=== PATIENT | female | born 1975 | race Caucasian/White ===

== ENCOUNTER 2017-01-15 10:15 | Day surgery (SDC) | payer BC ==
[~2017-01-15] VITALS: Ht 157.5 cm; Wt 74.8 kg
--- NOTE | ~2017-01-15 | EGD ---
EGD REPORT [facility] [address] [id number] NAME: JEROME COOLEY : [birth year] [place] [facility] [place] [id number] AGE: 41 ADM/REG DATE : 01/15/17 MR#: [id number] REPORT SERV DATE: 01/15/17 DICTATED BY: NATASHA HICKS DATE: 01/15/17 REPORT STATUS : Draft TRANSCRIBED BY: [employer] [facility] DATE: 01/15/17 [facility] Patient Name: Jerome Cooley Date of : 1975 Attending MD: NATASHA HICKS, Procedure Date No Time: 01/15/2017 Procedure: Upper EUS Indications: Abnormal ultrasound of the abdomen. Dilated bile duct and abnormal transaminases. Referring MD: VANESSA RUVALCABA III, KARIS ESTRADA MD, AUSTIN CANTRELL Medicines: Monitored Anesthesia Care Complications: No immediate complications. Estimated blood loss: None. Procedure: Pre-Anesthesia Assessment: - ASA Grade Assessment: III - A patient with severe systemic disease. After obtaining informed consent, the endoscope was passed under direct vision. Throughout the procedure, the patient's blood pressure, pulse, and oxygen saturations were monitored continuously. The Endoscope was introduced through the mouth, and advanced to the second part of duodenum. The upper EUS was accomplished without difficulty. The patient tolerated the procedure well. Findings: Endoscopic Finding : The area of the papilla was normal. Endosonographic Finding : There was dilation in the common bile duct which measured up to 7 mm. Endosonographic imaging of the visualized portion of the biliary system showed no stones, no sludge and no stricture. There was no sign of significant endosonographic abnormality in the entire pancreas. The pancreas was well visualized, no pathologic lymphadenopathy, no masses, no calcifications, the pancreatic duct was well visualized from ampulla to tail, the pancreatic duct was regular in contour. The pancreatic duct had a normal endosonographic appearance in the entire pancreas. The pancreatic duct measured up to 2.7 mm in diameter. No lymphadenopathy seen. There was no sign of significant endosonographic abnormality in the ampulla. Endosonographic images of the stomach were unremarkable. There was no sign of significant endosonographic abnormality in the esophagus. EGD REPORT [address] [address] NAME: JEROME COOLEY : [birth year] [place] [facility] [place]#: [id number] AGE: 41 ADM/REG DATE : 01/15/17 MR#: [id number] REPORT SERV DATE: 01/15/17 DICTATED BY: NATASHA HICKS DATE: 01/15/17 REPORT STATUS : Draft TRANSCRIBED BY: [employer] [facility] DATE: 01/15/17 Impression: - Normal area of the papilla. - There was dilation in the common bile duct which measured up to 7 mm. - There was no sign of significant pathology in the entire pancreas. - The pancreatic duct had a normal endosonographic appearance in the entire pancreas. The pancreatic duct measured up to 2.7 mm in diameter. - There was no sign of significant pathology in the ampulla. - Endosonographic images of the stomach were unremarkable. - There was no sign of significant pathology in the esophagus. Recommendation: - Return to previous diet. - Continue present medications. - Return to referring physician. Procedure Code(s): --- Professional --- 00336, Esophagogastroduodenoscopy, flexible, transoral; with endoscopic ultrasound examination, including the esophagus, stomach, and either the duodenum or a surgically altered stomach where the jejunum is examined distal to the anastomosis Diagnosis Code(s): --- Professional --- K83.8, Other specified diseases of biliary tract R93.5, Abnormal findings on diagnostic imaging of other abdominal regions, including retroperitoneum CPT copyright 2013 [employer]. All rights reserved. The codes documented in this report are preliminary and upon golf course assistant review may be revised to meet current compliance requirements. Attending Participation: I personally performed the entire procedure. NATASHA HICKS, 01/15/2017 11:49 AM Number of Addenda: 0 Note Initiated On: 01/15/2017 11:21 AM Scope Withdrawal Time 0 hours 0 minutes 0 seconds EGD REPORT [facility] [address] [id number] NAME: JEROME COOLEY : [birth year] [place] : [place] [facility] [place]#: [id number] AGE: 41 ADM/REG DATE : 01/15/17 MR#: [id number] REPORT SERV DATE: 01/15/17 DICTATED BY: NATASHA HICKS DATE: 01/15/17 REPORT STATUS : Draft TRANSCRIBED BY: [employer] [facility] DATE: 01/15/17 [address] [id number]
[~2017-01-15 10:15] MED LIST: CARASPUDL PO; CAT1 PO; CYMBALTA30 PO; FLEX PO; HYDROCHLOROT25 MG PO; KLONO1 PO; LIDOCAINE; LIOR10 PO; MAALOX; NORV10 PO; NUCYNTA50 MG PO; PERCOCET1 TA4 PO; PR25 PO; PROTONIX PO; TREXIMET1 TAB PO; ZOFRAN4 PO
== END 2017-01-15 23:59 | disposition home or self-care (01) ==
LOC: DMU 10:15
PROVIDERS: Internal Medicine Gastroenterology
PROC: 0DJ08ZZ Inspection of Upper Intestinal Tract, Via Natural or Artificial Opening Endoscopic (ICD-10-PCS; principal; 2017-01-15 12:00)
DX: K83.8 Other specified diseases of biliary tract (principal); K76.0 Fatty (change of) liver, not elsewhere classified; D69.6 Thrombocytopenia, unspecified; K21.0 Gastro-esophageal reflux disease with esophagitis; M79.7 Fibromyalgia; I10 Essential (primary) hypertension; Z88.0 Allergy status to penicillin; Z88.5 Allergy status to narcotic agent; Z88.8 Allergy status to other drugs, medicaments and biological substances; Z87.891 Personal history of nicotine dependence; Z90.711 Acquired absence of uterus with remaining cervical stump; Z90.89 Acquired absence of other organs; Z90.49 Acquired absence of other specified parts of digestive tract; Z90.722 Acquired absence of ovaries, bilateral; Z98.890 Other specified postprocedural states
CPT/HCPCS: C1725; J2405